=== PATIENT | male | born 1965 | race Caucasian/White ===

== ENCOUNTER 2017-02-13 09:40 | Emergency (ER) | payer BC ==
--- NOTE | 2017-02-13 09:51 | DR.CP ---
HPI - Time Seen Time seen: 09:40 - Complaint Chief Complaint Doctor Comments: Patient presents with compllaint of chest pain today onset on the right upper chest radiating to left and neck with radiation to upper extremties associated with diaphoresis. He states that his symptoms started six weeks ago and has had cardiac workup by Dr Dinero his primary care physician to include a stress test.. He reports that is being scheduled for cardiac cath next week. He has a six year history of pipe smoking; malignant skin cancer of the left lower extremity greater than 15 years ago and prostate cancer presently being treated. PMH - PMH Past Surgical History: Yes Surgical History: Other (malignant skin cancer left lower extremity) - Social History Type of Tobacco Use: Pipe How many years tobacco product used: 6 ROS - Review of Systems Constitutional: No Symptoms Reported Eyes: No Symptoms Reported ENTM: No Symptoms Reported Respiratoy: No Symptoms Reported Cardiovascular: No Symptoms Reported Gastrointestinal/Abdominal: No Symptoms Reported Genitourinary: No Symptoms Reported Neurological: No Symptoms Reported Musculoskeletal: No Symptoms Reported Integumentary: No Symptoms Reported Hematologic/Lymphatic: No Symptoms Reported Endocrine: No Symptoms Reported Psychiatric: No Symptoms Reported All Other Systems: Reviewed and Negative PE - Vitals Vitals: Temperature 98.7 F Pulse Rate 70 Respiratory Rate 18 Blood Pressure 126/81 O2 Sat by Pulse Oximetry 99 - General Limitations: No Limitations General Appearance: Alert, In No Apparent Distress - Head Head Exam: Normal Inspection, Atraumatic - Eyes Eye exam: Normal Appearance, PERRL, EOMI - ENT ENT Exam: Normal Exam - Chest Chest Inspection: Normal Inspection, Symmetric Chest Wall Rise - Respiratory Respiratory Exam: Normal Lung Sounds Bilat Respiratory Exam: Bilateral Clear to Auscultation - Cardiovascular Cardiovascular Exam: Regular Rate, Normal Rhythm Pulse: Normal, Radial Edema: Normal - Abdominal Exam Abdominal Exam: Normal Inspection Abdominal Tenderness: negative: RUQ, RLQ, LUQ, LLQ, Epigastrium, Suprapubic, Diffuse, Mild, Moderate, Severe, Other - Extremities Extremities Exam: Normal Inspection, Full ROM - Neurologic Neurological Exam: Alert, Oriented X3, CN II-XII Intact - Psychiatric Psychiatric Exam: Normal Affect, Normal Mood - Skin Skin Exam: Warm, Dry Course - Reevaluation 1st: Improved - Consultation Called: 10:30 (Nurse talked to Dr Dejesus accepted for stat cath) ROR - Labs Reviewed Result Diagrams: 02/13/17 09:48 02/13/17 09:48 Laboratory: WBC 5.6 X10^3/uL (3.6-10.0) 02/13/17 09:48 RBC 4.44 X10^6/uL (4.7-6.0) L 02/13/17 09:48 Hgb 14.6 g/dL (13.5-18.0) 02/13/17 09:48 Hct 41.0 % (42.0-54.0) L 02/13/17 09:48 MCV 92.2 fL (80.0-100.0) 02/13/17 09:48 MCH 32.8 pg (27.0-34.0) 02/13/17 09:48 MCHC 35.6 g/dL (33.0-35.0) H 02/13/17 09:48 RDW 13.0 % (11.6-16.5) 02/13/17 09:48 Plt Count 192 X10^3/uL (150.0-450.0) 02/13/17 09:48 MPV 8.8 fL (7.4-11.0) 02/13/17 09:48 Neut % 52.6 % (42.0-75.0) 02/13/17 09:48 Lymph % 35.1 % (21.0-51.0) 02/13/17 09:48 [place] % 7.3 % (0.0-13.0) 02/13/17 09:48 Eos % 4.4 % (0.9-2.9) H 02/13/17 09:48 Baso % 0.6 % (0.2-1.0) 02/13/17 09:48 Neut # 3.0 x10^3/uL (2.2-4.8) 02/13/17 09:48 Lymph # 2.0 X10^3/uL (1.3-2.9) 02/13/17 09:48 [place] # 0.4 x10^3/uL (0.3-0.8) 02/13/17 09:48 Eos # 0.2 x10^3/uL (0.0-0.2) 02/13/17 09:48 Baso # 0.0 X10^3/uL (0.0-0.1) 02/13/17 09:48 Absolute Nucleated RBC 0.1 /100WBC 02/13/17 09:48 INR Target Range - 02/13/17 09:48 INR 0.91 (0.8-1.3) 02/13/17 09:48 Sodium 139 mmol/L (136-145) 02/13/17 09:48 Corrected Sodium TNP 02/13/17 09:48 Potassium 4.4 mmol/L (3.5-5.1) 02/13/17 09:48 Chloride 103 mmol/L (98-107) 02/13/17 09:48 Carbon Dioxide 25.3 mmol/L (21-32) 02/13/17 09:48 BUN 10 mg/dL (7-18) 02/13/17 09:48 Creatinine 1.01 mg/dL (0.70-1.30) 02/13/17 09:48 Est GFR (MDRD) Af Amer > 60 (>60) 02/13/17 09:48 Est GFR (MDRD) Non-Af > 60 (>60) 02/13/17 09:48 Glucose 104 mg/dL (65-99) H 02/13/17 09:48 Calcium 8.8 mg/dL (8.5-10.1) 02/13/17 09:48 Corrected Calcium TNP 02/13/17 09:48 Phosphorus 3.7 mg/dL (2.6-4.7) 02/13/17 09:48 Magnesium 2.0 mg/dL (1.7-2.9) 02/13/17 09:48 Total Bilirubin 0.40 mg/dL (0.2-1.0) 02/13/17 09:48 AST 18 Units/L (15-37) 02/13/17 09:48 ALT 30 Units/L (12-78) 02/13/17 09:48 Alkaline Phosphatase 79 Units/L (46-116) 02/13/17 09:48 Creatine Kinase 82 Units/L (39-308) 02/13/17 09:48 CK-MB (CK-2) < 1.0 ng/mL (0-4.0) 02/13/17 09:48 CK/CKMB % Calc 1.2 % (<4) 02/13/17 09:48 Troponin I < 0.02 ng/mL (0-1.5) 02/13/17 09:48 Total Protein 7.5 g/dL (6.4-8.2) 02/13/17 09:48 Albumin 4.1 g/dL (3.4-5.0) 02/13/17 09:48 Globulin 3.4 g/dL (2.5-4.5) 02/13/17 09:48 Albumin/Globulin Ratio 1.2 Ratio (1.1-2.1) 02/13/17 09:48 - XRAY XRAY Interpreted by: Radiologist (No acute pulmonary process. Question of cortical irregularity of multiple left lateral ribs. This may represent artifact, but rib fracture not entirely excluded. Recommend clinical correlation and consider dedicated left rib series.) - Diagnosis Discharge Problem: Chest pain with high risk for cardiac etiology - Discharge Plan Condition: Stable - Follow ups/Referrals Follow ups/Referrals: Norman Dinero [Primary Care Provider] - 3 days - Instructions
[2017-02-13] MEDS ORDERED: NS 1000 ML 1,000 ML IV SCH (10:00)
[2017-02-13 10:08] LABS: BASOPHILS % (AUTO) 0.6 % (0.2-1.0); EOSINOPHILS # (AUTO) 0.2 x10^3/uL (0.0-0.2); MEAN PLATELET VOLUME 8.8 fL (7.4-11.0); MONOCYTES # (AUTO) 0.4 x10^3/uL (0.3-0.8)
[2017-02-13] MEDS ORDERED: NS 1000 ML 1,000 ML ONE (10:09)
[2017-02-13 10:11] VITALS: BMI 26.0
[2017-02-13 10:21] LABS: BLOOD UREA NITROGEN 10 mg/dL (7-18); CALCIUM 8.8 mg/dL (8.5-10.1); CARBON DIOXIDE 25.3 mmol/L (21-32); CHLORIDE 103 mmol/L (98-107); CREATININE 1.01 mg/dL (0.70-1.30); GLUCOSE 104 mg/dL (65-99); SODIUM 139 mmol/L (136-145); TROPONIN I < 0.02 ng/mL (0-1.5); eGFR BLACK RACES > 60 (>60); eGFR NON BLACK RACES > 60 (>60)
[2017-02-13 10:25] LABS: ALANINE AMINOTRANSFERASE 30 Units/L (12-78); ALBUMIN 4.1 g/dL (3.4-5.0); ALKALINE PHOSPHATASE 79 Units/L (46-116); ASPARTATE AMINO TRANSFERASE 18 Units/L (15-37); CKMB % 1.2 % (<4); CREATINE KINASE 82 Units/L (39-308); CREATINE KINASE MB < 1.0 ng/mL (0-4.0); PHOSPHORUS 3.7 mg/dL (2.6-4.7); TOTAL PROTEIN 7.5 g/dL (6.4-8.2)
[2017-02-13 10:29] LABS: EOSINOPHILS % (AUTO) 4.4 % (0.9-2.9); HEMOGLOBIN 14.6 g/dL (13.5-18.0); LYMPHOCYTES % (AUTO) 35.1 % (21.0-51.0); MEAN CORPUSCULAR HEMOGLOBIN 32.8 pg (27.0-34.0); MEAN CORPUSCULAR HGB CONC 35.6 g/dL (33.0-35.0); MEAN CORPUSCULAR VOLUME 92.2 fL (80.0-100.0); MONOCYTES % (AUTO) 7.3 % (0.0-13.0); NEUTROPHILS % (AUTO) 52.6 % (42.0-75.0); PLATELET COUNT 192 X10^3/uL (150.0-450.0); RED BLOOD COUNT 4.44 X10^6/uL (4.7-6.0); WHITE BLOOD COUNT 5.6 X10^3/uL (3.6-10.0)
--- NOTE | 2017-02-13 10:29 | RAD ---
HISTORY: Chest pain. Study: Portable chest. Comparison: None. Findings: Study slightly limited secondary to costophrenic angles off the field of view. The trachea is midline. The cardiac silhouette is unremarkable. The lungs are clear without focal infiltrate or effusion. Question of cortical irregularity of multiple left lateral ribs. Remaining osseous structures appear intact. IMPRESSION: 1. No acute pulmonary process. 2. Question of cortical irregularity of multiple left lateral ribs. This may represent artifact, but rib fracture not entirely excluded. Recommend clinical correlation and consider dedicated left rib series. Reported By:
[2017-02-13] MEDS ORDERED: ASPIRIN 81 MG CHEWTAB ONE (11:15)
[2017-02-13] MEDS ORDERED: ASPIRIN PO STA (11:15)
[2017-02-13 11:38] VITALS: BP 130/77
== END 2017-02-13 11:35 | disposition short-term general hospital (02) ==
LOC: ER 09:53
DX: R07.89 Other chest pain (principal)
CPT/HCPCS: 36415; 71010; 80053; 82550; 82553; 83735; 84100; 84484; 85025; 85610; 93005; 93010; 96365; 99284; 99285; A4222

== ENCOUNTER → 2017-06-01 | Outpatient (CLI) | payer BC ==
--- NOTE | 2017-06-03 18:27 | MRI ---
HISTORY: Cervicalgia Study: MRI cervical spine without contrast Comparison: None Technique: Multiplanar multisequence MRI of the cervical spine was obtained utilizing standard [facility] protocol. Findings: Alignment of the cervical spine is maintained. No abnormal signal characteristics of the bone marrow can be identified. No evidence for fracture or significant bone or edema can be seen. The surround ing soft tissues are unremarkable. The cervical spinal cord is normal in size and configuration . Th ere is abnormal signal in the spinal cord at the C5-6 level which could be related to edema or chroni c myelomalacia. C2 -- C3: No evidence for compressive disc disease. The neural foramina are patent C3 -- C4: Mild broad-based disc bulging effaces the thecal sac but does not contribute to significant canal stenosis or cord compression. The neural foramina are patent. C4 -- C5: Broad-based and right were disc protrusion effaces the thecal sac and contributes to modera te canal stenosis and significant foraminal narrowing on the right. The left neural foramen is patent . C5-6: Broad-based disc osteophyte formation effaces the thecal sac, contributes to significant cord c ompression and relatively severe canal stenosis. As noted above there is some increased T2 signal in the spinal cord at this area which could represent edema or chronic mild malacia. Significant foramin al narrowing is present on the right. More moderate foraminal narrowing is present on the left. 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 The neural foramina are patent. C7 -- T1: Mild disc bulging effaces the thecal sac and contributes to mild foraminal narrowing bilate rally. No significant canal stenosis or cord compression is identified. IMPRESSION: As above Reported By:
== END | disposition home or self-care (01) | DRG 552 ==
LOC: RAD 10:28
PROVIDERS: ATTEND Internal Medicine
DX: M54.2 Cervicalgia (principal); M50.221 Other cervical disc displacement at C4-C5 level; M25.78 Osteophyte, vertebrae; M48.02 Spinal stenosis, cervical region; Q76.49 Other congenital malformations of spine, not associated with scoliosis
CPT/HCPCS: 72141

== ENCOUNTER 2021-12-18 11:22 | Inpatient (IN) ==
[2021-12-18] MEDS ORDERED: ZOFRAN INJ 4 MG VIAL IVP PRN (12:47)
[2021-12-18] MEDS ORDERED: NS 1,000 ML IV 1,000 ML ONE (12:50)
[2021-12-18] MEDS ORDERED: NS 100 ML IV 0 ML ONE (12:50)
[2021-12-18] MEDS ORDERED: PROTONIX INJ 40 MG VIAL ONE (12:50)
[2021-12-18] MEDS ORDERED: PEPCID 20 MG VIAL ONE (12:51)
[2021-12-18] MEDS ORDERED: NS 50 ML IV 50 ML IV ONE (12:52)
[2021-12-18 13:18] LABS: BASOPHILS % (AUTO) 0.4 % (0.2-1.0); EOSINOPHILS # (AUTO) 0.1 x10^3/uL (0.0-0.2); EOSINOPHILS % (AUTO) 1.1 % (0.9-2.9); HEMATOCRIT 25.8 % (42.0-54.0); HEMOGLOBIN 9.2 g/dL (13.5-18.0); LYMPHOCYTES # (AUTO) 0.9 X10^3/uL (1.3-2.9); LYMPHOCYTES % (AUTO) 9.5 % (21.0-51.0); MEAN CORPUSCULAR HEMOGLOBIN 30.5 pg (27.0-34.0); MEAN CORPUSCULAR HGB CONC 35.6 g/dL (33.0-35.0); MEAN CORPUSCULAR VOLUME 85.7 fL (80.0-100.0); MEAN PLATELET VOLUME 7.2 fL (7.4-11.0); MONOCYTES # (AUTO) 0.8 x10^3/uL (0.3-0.8); MONOCYTES % (AUTO) 9.1 % (0.0-13.0); NEUTROPHILS # (AUTO) 7.4 x10^3/uL (2.2-4.8); NEUTROPHILS % (AUTO) 79.9 % (42.0-75.0); RED BLOOD COUNT 3.01 X10^6/uL (4.7-6.0); RED CELL DISTRIBUTION WIDTH 15.7 % (11.6-16.5); WHITE BLOOD COUNT 9.2 X10^3/uL (3.6-10.0)
[2021-12-18] MEDS: PEPCID 20 MG VIAL 20 MG in NS 50 ML IV 50 ML IV SCH ×2 (13:21→20:06)
[2021-12-18] MEDS: PROTONIX INJ 40 MG VIAL IVP SCH ×2 (13:22→20:06)
[2021-12-18] MEDS: NS 1,000 ML IV 1,000 ML IV SCH (13:22)
[2021-12-18 13:32] LABS: ALANINE AMINOTRANSFERASE 32 Units/L (12-78); ALBUMIN 2.3 g/dL (3.4-5.0); ALKALINE PHOSPHATASE 466 Units/L (46-116); ASPARTATE AMINO TRANSFERASE 40 Units/L (15-37); BLOOD UREA NITROGEN 16 mg/dL (7-18); CALCIUM 8.9 mg/dL (8.5-10.1); CARBON DIOXIDE 30.6 mmol/L (21-32); CHLORIDE 84 mmol/L (98-107); COR CA(FOR HYPOALB) 10.3 mg/dL (8.5-10.1); CREATININE 1.19 mg/dL (0.70-1.30); TOTAL PROTEIN 7.1 g/dL (6.4-8.2); eGFR NON BLACK RACES > 60 (>60)
[2021-12-18 13:39] LABS: SODIUM 122 mmol/L (136-145)
[2021-12-18 13:41] LABS: AMYLASE 33 Units/L (25-115); LIPASE 72 Units/L (73-393)
[2021-12-18] MEDS: ULTRAM PO PRN (20:06)
[2021-12-19] MEDS: ULTRAM PO PRN (01:00)
[2021-12-19] MEDS: NS 1,000 ML IV 1,000 ML IV SCH ×3 (03:21→21:20)
[2021-12-19 06:31] LABS: BASOPHILS # (AUTO) 0.1 X10^3/uL (0.0-0.1); BASOPHILS % (AUTO) 0.8 % (0.2-1.0); EOSINOPHILS # (AUTO) 0.2 x10^3/uL (0.0-0.2); EOSINOPHILS % (AUTO) 1.7 % (0.9-2.9); HEMATOCRIT 26.3 % (42.0-54.0); LYMPHOCYTES # (AUTO) 1.4 X10^3/uL (1.3-2.9); LYMPHOCYTES % (AUTO) 14.4 % (21.0-51.0); MEAN CORPUSCULAR HEMOGLOBIN 29.8 pg (27.0-34.0); MEAN CORPUSCULAR HGB CONC 34.4 g/dL (33.0-35.0); MEAN CORPUSCULAR VOLUME 86.6 fL (80.0-100.0); MEAN PLATELET VOLUME 7.4 fL (7.4-11.0); MONOCYTES # (AUTO) 0.8 x10^3/uL (0.3-0.8); MONOCYTES % (AUTO) 8.3 % (0.0-13.0); NEUTROPHILS # (AUTO) 7.3 x10^3/uL (2.2-4.8); NEUTROPHILS % (AUTO) 74.8 % (42.0-75.0); RED BLOOD COUNT 3.03 X10^6/uL (4.7-6.0); RED CELL DISTRIBUTION WIDTH 15.6 % (11.6-16.5); WHITE BLOOD COUNT 9.8 X10^3/uL (3.6-10.0)
[2021-12-19 06:40] LABS: ALANINE AMINOTRANSFERASE 29 Units/L (12-78); ALBUMIN 2.2 g/dL (3.4-5.0); ALKALINE PHOSPHATASE 436 Units/L (46-116); AMYLASE 38 Units/L (25-115); ASPARTATE AMINO TRANSFERASE 39 Units/L (15-37); BLOOD UREA NITROGEN 14 mg/dL (7-18); CARBON DIOXIDE 29.7 mmol/L (21-32); CHLORIDE 89 mmol/L (98-107); COR CA(FOR HYPOALB) 10.4 mg/dL (8.5-10.1); CREATININE 1.28 mg/dL (0.70-1.30); LIPASE 77 Units/L (73-393); TOTAL PROTEIN 7.1 g/dL (6.4-8.2); eGFR NON BLACK RACES > 60 (>60)
[2021-12-19 06:45] LABS: SODIUM 124 mmol/L (136-145)
[2021-12-19] MEDS: PROTONIX INJ 40 MG VIAL IVP SCH ×2 (08:24→20:50)
[2021-12-19] MEDS: PEPCID 20 MG VIAL 20 MG in NS 50 ML IV 50 ML IV SCH ×2 (08:24→20:50)
--- NOTE | 2021-12-19 10:53 | DR.UPDATE ---
H&P Update History and Physical Update: History and Physical reviewed and patient examined. Changes noted: Yes with the following: IS A 56 YEAR OLD PATIENT OF OURS. HE HAS BEEN FOLLOWED IN THE OFFICE FOR COMPALINTS OF ABDOMINAL PAIN, INTRACTABLE NAUSEA, AND WEAKNESS. PAIN HAS PERSISENTLY GOTTEN WORSE OVER THE PAST WEEK. HE HAS BEEN TAKING TRAMALOD AND GI COCKTAIL WITHOUT IMPROVEMENT IN PAIN. HE ADMITS TO A 22 POUND WEIGHT LOSS IN THE PAST WEEK DUE TO FLUID BEING TAKEN OFF WITH ALDACTONE AND LASIX. PATIENT HAS A C URRENT HISTORY OF PROSTATE CANCER WITH METS TO THE LIVER. PAIN IS DESCRIBED RLQ AND LLQ DULL TENDERNESS, CONSTANT, AND IT IS RATED A 6/10. HE REPORTS WORSENING PAIN AFTER EATING. HE STATES, I SUFFER FOR SEVERAL HOURS AFTER I EAT. HE HAD AN ABDOMINAL ULTRASOUND ON 12/11/21. IT REVEALED: Hepatomegaly with multiple new echogenic lesions of varying size throughout the liver suspicious for metastatic disease. There is no ascites at this time. The pancreas spleen aorta and IVC are normal. There is moderate hydronephrosis bilaterally in both kidneys. DECISION WAS MADE TO ADMIT PATIENT TO THE HOSPITAL FOR FURTHER EVALUATION AND TREATMENT OF INTRACTABLE ABDOMINAL PAIN AND NAUSEA AND WEAKNESS. ON ARRIVAL TO THE HOSPITAL, VITALS WERE 97.8-109-20-99%-115/75. LABS WERE OBTAINED. WBC 9.2, RBC 3.01, HGB 9.2, HCT 25.8, SODIUM 122, POTASSIUM 4.1, CHLORIDE 84, BUN 16, CREATININE 1.19, GLUCOSE 96, CORRECTED CALCIUM 10.3, AST 40, ALT 32, ALK PHOS 466, ALBUMIN 2.3, GLOBULIN 4.8, LIPASE 72. COVID-19 NEG ATIVE. WE STARTED HIM ON NORMAL SALINE AT 75 ML/HR, PROTONIX 40MG IV BID, PEPCID 20MG IV Q12H, ZOFRAN 4MG IV Q4H PRN, AND ULTRAM 50MG PO Q4H PRN PAIN. WE WILL CONSULT WITH , LAYOUT ARTIST FOR FURTHER EVALUATION. OTHERWISE, WE PLAN TO FOLLOW UP WITH AM LABS AND CONTINUE TO MONITOR. TIME SPENT ON CLINICAL ASSESSMENT, REVIEWING LABS AND IMAGING, DECISION MAKING, AND DOCUMENTATION GREATER THAN 75 MINUTES. Prescription drug monitoring program results: PDMP reviewed and no concerns identified H&P Reviewed: Yes Patient was examined?: Yes
[2021-12-19] MEDS ORDERED: D5 LR 1,000 ML 1,000 ML IV ONE (12:50)
[2021-12-19] MEDS ORDERED: DIPRIVAN VIAL 20 ML ONE (13:48)
[2021-12-19] MEDS ORDERED: KETAMINE HCL ONE (13:50)
[2021-12-19 18:25] VITALS: BMI 21.5
[2021-12-19] MEDS: MEGACE PO SCH (20:50)
[2021-12-19] MEDS: MIRALAX POWDER (1 DOSE 17 G) PO SCH (20:50)
[2021-12-19] MEDS: COLACE CAP 100 MG PO SCH (20:50)
[2021-12-20] MEDS: ULTRAM PO PRN (01:11)
[2021-12-20] MEDS ORDERED: NS 100 ML IV 100 ML ONE (02:15)
[2021-12-20 06:19] LABS: BASOPHILS # (AUTO) 0.1 X10^3/uL (0.0-0.1); BASOPHILS % (AUTO) 0.6 % (0.2-1.0); EOSINOPHILS # (AUTO) 0.1 x10^3/uL (0.0-0.2); EOSINOPHILS % (AUTO) 1.5 % (0.9-2.9); HEMATOCRIT 24.3 % (42.0-54.0); HEMOGLOBIN 8.5 g/dL (13.5-18.0); LYMPHOCYTES # (AUTO) 1.2 X10^3/uL (1.3-2.9); LYMPHOCYTES % (AUTO) 12.2 % (21.0-51.0); MEAN CORPUSCULAR HGB CONC 34.9 g/dL (33.0-35.0); MEAN CORPUSCULAR VOLUME 85.9 fL (80.0-100.0); MEAN PLATELET VOLUME 7.3 fL (7.4-11.0); MONOCYTES # (AUTO) 0.9 x10^3/uL (0.3-0.8); MONOCYTES % (AUTO) 9.3 % (0.0-13.0); NEUTROPHILS # (AUTO) 7.5 x10^3/uL (2.2-4.8); NEUTROPHILS % (AUTO) 76.4 % (42.0-75.0); RED BLOOD COUNT 2.83 X10^6/uL (4.7-6.0); RED CELL DISTRIBUTION WIDTH 15.4 % (11.6-16.5); WHITE BLOOD COUNT 9.8 X10^3/uL (3.6-10.0)
[2021-12-20] MEDS: NS 1,000 ML IV 1,000 ML IV SCH ×2 (06:20→21:00)
[2021-12-20 06:24] LABS: ALANINE AMINOTRANSFERASE 40 Units/L (12-78); ALBUMIN 2.1 g/dL (3.4-5.0); ALKALINE PHOSPHATASE 581 Units/L (46-116); ASPARTATE AMINO TRANSFERASE 63 Units/L (15-37); BLOOD UREA NITROGEN 13 mg/dL (7-18); CALCIUM 8.3 mg/dL (8.5-10.1); CARBON DIOXIDE 26.8 mmol/L (21-32); CHLORIDE 93 mmol/L (98-107); COR CA(FOR HYPOALB) 9.8 mg/dL (8.5-10.1); CREATININE 1.17 mg/dL (0.70-1.30); SODIUM 126 mmol/L (136-145); TOTAL PROTEIN 6.5 g/dL (6.4-8.2); eGFR NON BLACK RACES > 60 (>60)
--- NOTE | 2021-12-20 08:25 | CT ---
HISTORYRight upper quadrant abdominal pain, weaknessSTUDYCT abdomen pelvis with contrastTechnique: Axial post-contrast images with coronal and sagittal reformats. Dose reduction procedures were used with mA/kv adjusted for body size.[id number]/13/2022 abdominal ultrasound, CT abdomen pelvis 05/17/2020FINDINGSThe lung bases are clear of acute infiltrates. Multiple bilateral sub 5 mm pulmonary nodules are identified. Pulmonary metastatic disease is possible and correlation with chest CT with contrast is recommended for further evaluation. The liver is enlarged and diffusely severely involved with metastatic disease. Largest lesion is in the right lobe and measures 6.3 x 5.2 cm. No opaque stones are present within the gallbladder. The spleen, adrenal glands, and pancreas are within normal limits. The left kidney is unobstructed and without masses. Nonobstructing left renal calculi are present. No left ureteral calculi are identified. No right renal calculi are identified. However there is marked right-sided hydroureteronephrosis. The point of obstruction is in the area of the pelvic brim and due to a large mass of enlarged lymph nodes. No ureteral calculi are identified. The abdominal aorta is normal. There is extensive para-aortic lymphadenopathy with the largest cluster of nodes in the upper abdomen measuring approximately 7 x 4.6 cm. There is extensive right para iliac lymphadenopathy and also enlarged left para iliac lymphadenopathy. Findings could be consistent with metastatic disease or lymphoproliferative disease such as lymphoma or leukemia. The appendix is not identified with absolute certainty. There are no secondary signs of appendicitis present. There are no findings suggestive of enteritis, colitis, or diverticulitis. There are no findings suggestive of small or large bowel obstruction. No pelvic fluid is identified. There is diffuse thickening of the bladder wall which could be inflammatory, post radiation, or neoplastic in origin. Prostatic seed implants are present. No significant inguinal lymphadenopathy is identified. No lytic or blastic skeletal lesions of significance are identified.IMPRESSIONHepatomegaly with diffuse severe involvement of the liver with metastatic diseaseExtensive para-aortic and para iliac lymphadenopathy as described aboveMarked right-sided hydroureteronephrosis secondary to mid to distal ureteral obstruction by abnormal periaortic act lymphadenopathyDiffuse thickening of the bladder wall which could be neoplastic, inflammatory or post irradiation in etiology. Clinical and historical correlation is recommended.Electronically signed by: TERE CANTU (Dec 20, 2021 08:25:07)
[2021-12-20] MEDS: COLACE CAP 100 MG PO SCH ×2 (09:28→21:01)
[2021-12-20] MEDS: ALDACTONE TAB 25 MG PO SCH (09:28)
[2021-12-20] MEDS: PEPCID 20 MG VIAL 20 MG in NS 50 ML IV 50 ML IV SCH ×2 (09:29→21:06)
[2021-12-20] MEDS: PROTONIX INJ 40 MG VIAL IVP SCH ×2 (09:29→21:00)
[2021-12-20] MEDS: MEGACE PO SCH ×2 (09:29→21:06)
[2021-12-20] MEDS: ROXICODONE TAB 5 MG PO PRN ×2 (09:30→21:07)
[2021-12-20] MEDS: CARAFATE PO SCH ×3 (14:46→21:05)
[2021-12-20 18:28] LABS: BLOOD UREA NITROGEN 12 mg/dL (7-18); CALCIUM 8.6 mg/dL (8.5-10.1); CARBON DIOXIDE 27.1 mmol/L (21-32); CHLORIDE 94 mmol/L (98-107); CREATININE 1.19 mg/dL (0.70-1.30); SODIUM 127 mmol/L (136-145); eGFR NON BLACK RACES > 60 (>60)
--- NOTE | 2021-12-20 18:38 | PCM.PROG ---
Progress Note Progress Note for Day of Date of Exam: 12/20/21 Subjective Subjective: PT IS A 56 YEAR OLD PATIENT PAST MEDICAL HISTORY OF METASTATIC PROSTATE CANCER ADMITTED FOR ABDOMINAL PAIN, INTRACTABLE NAUSEA, WEAKNESS, AND HYPONATREMIA. GI WAS CONSULTED-DR SULLIVAN AND EGD WAS PERFORMED YESTERDAY THAT REVEALED: Distal esophagitis. Mild to moderate gastritis. Duodenum diverticulum. Ectopic mucosa in the upper esophagus consistent with significant acid reflux. LABS WERE OBTAINED THAT REVEALED: WBC 9.8, HGB 8.5, PLT 343, NA 126, K 4.1, CREATININE 1.17, GLUCOSE 102, AST 63, ALT 40, ALKP 581. HE IS CURRENTLY RECEIVING IVF NORMAL SALINE AT 75 ML/HR, PROTONIX 40MG IV BID, PEPCID 20MG IV Q12H, ZOFRAN 4MG IV Q4H PRN, AND ULTRAM 50MG PO Q4H PRN PAIN. WILL ADD CARAFATE TID, AND ENSURE TO HELP WITH NUTRITION. REPEAT BMP IN THE AFTERNOON TO ASSESS HYPONATREMIA. ADD RESTORIL AT NIGHT TO HELP WITH SLEEP. CTAP CURRENTLY PENDING. OTHERWISE, WE PLAN TO FOLLOW UP WITH AM LABS AND CONTINUE TO MONITOR. Past Medical Family Social History Past Med/Fam/Surg Hx: No changes since H&P Allergies: Allergies Sulfa (Sulfonamide Antibiotics) [SULFA] Allergy (Verified 12/18/21 12:46) Review of Systems ROS: No change since H&P Vital Signs and I&O's Vital Signs: Temperature 99.4 F Pulse Rate [Right Brachial] 120 Pulse Rate 103 Respiratory Rate 18 Blood Pressure [Right Arm] 119/73 Blood Pressure 127/79 O2 Sat by Pulse Oximetry 98 Intake and Output: Intake & Output 12/17/21 12/18/21 12/19/21 12/20/21 23:59 23:59 23:59 23:59 Intake Total 1440 / 1440 3462 / 3462 900 / 900 Output Total 150 / 150 Balance 1440 / 1440 3312 / 3312 900 / 900 Physical Exam Oriented: Normal Eyes: Normal Ear: Normal Nose: Normal Throat: Normal Respiratory: Normal Cardiovascular: Normal : Normal Auscultation: Bowel Sounds: Normal Palpation: Other (MILD-MODERATE ASCITES) Tenderness: Epigastric Skin: Normal Musculoskeletal: Normal Psychiatric: Normal Speech Pattern: Clear and Appropriate Laboratory and Diagnostics Result Diagrams: 12/20/21 05:52 12/20/21 18:09 Labs: Laboratory WBC 9.8 X10^3/uL (3.6-10.0) 12/20/21 05:52 RBC 2.83 X10^6/uL (4.7-6.0) L 12/20/21 05:52 Hgb 8.5 g/dL (13.5-18.0) L 12/20/21 05:52 Hct 24.3 % (42.0-54.0) L 12/20/21 05:52 MCV 85.9 fL (80.0-100.0) 12/20/21 05:52 MCH 30.0 pg (27.0-34.0) 12/20/21 05:52 MCHC 34.9 g/dL (33.0-35.0) 12/20/21 05:52 RDW 15.4 % (11.6-16.5) 12/20/21 05:52 Plt Count 343 X10^3/uL (150.0-450.0) 12/20/21 05:52 MPV 7.3 fL (7.4-11.0) L 12/20/21 05:52 Neut % (Auto) 76.4 % (42.0-75.0) H 12/20/21 05:52 Lymph % (Auto) 12.2 % (21.0-51.0) L 12/20/21 05:52 [place] % (Auto) 9.3 % (0.0-13.0) 12/20/21 05:52 Eos % (Auto) 1.5 % (0.9-2.9) 12/20/21 05:52 Baso % (Auto) 0.6 % (0.2-1.0) 12/20/21 05:52 Neut # (Auto) 7.5 x10^3/uL (2.2-4.8) H 12/20/21 05:52 Lymph # (Auto) 1.2 X10^3/uL (1.3-2.9) L 12/20/21 05:52 [place] # (Auto) 0.9 x10^3/uL (0.3-0.8) H 12/20/21 05:52 Eos # (Auto) 0.1 x10^3/uL (0.0-0.2) 12/20/21 05:52 Baso # (Auto) 0.1 X10^3/uL (0.0-0.1) 12/20/21 05:52 Absolute Nucleated RBC 0.1 /100WBC 12/20/21 05:52 Sodium 127 mmol/L (136-145) L 12/20/21 18:09 Corrected Sodium TNP 12/20/21 18:09 Potassium 3.7 mmol/L (3.5-5.1) 12/20/21 18:09 Chloride 94 mmol/L (98-107) L 12/20/21 18:09 Carbon Dioxide 27.1 mmol/L (21-32) 12/20/21 18:09 BUN 12 mg/dL (7-18) 12/20/21 18:09 Creatinine 1.19 mg/dL (0.70-1.30) 12/20/21 18:09 Est GFR (MDRD) Af Amer > 60 (>60) 12/20/21 18:09 Est GFR (MDRD) Non-Af > 60 (>60) 12/20/21 18:09 Glucose 110 mg/dL (65-99) H 12/20/21 18:09 Calcium 8.6 mg/dL (8.5-10.1) 12/20/21 18:09 Corrected Calcium 9.8 mg/dL (8.5-10.1) 12/20/21 05:52 Total Bilirubin 0.70 mg/dL (0.2-1.0) 12/20/21 05:52 AST 63 Units/L (15-37) H 12/20/21 05:52 ALT 40 Units/L (12-78) 12/20/21 05:52 Alkaline Phosphatase 581 Units/L (46-116) H 12/20/21 05:52 Total Protein 6.5 g/dL (6.4-8.2) 12/20/21 05:52 Albumin 2.1 g/dL (3.4-5.0) L 12/20/21 05:52 Globulin 4.4 g/dL (2.5-4.5) 12/20/21 05:52 Albumin/Globulin Ratio 0.5 Ratio (1.1-2.1) L 12/20/21 05:52 Amylase 38 Units/L (25-115) 12/19/21 05:57 Lipase 77 Units/L (73-393) 12/19/21 05:57 SARS-CoV-2 (PCR) Negative (NEGATIVE) 12/18/21 16:28 Tissue Pathology To follow 12/19/21 14:04 Plan (1) Prostate cancer, primary, with metastasis from prostate to other site: Status: Acute (2) Ascites: Status: Acute (3) Hyponatremia: Status: Acute (4) Abdominal pain: Status: Acute
[2021-12-20] MEDS ORDERED: RESTORIL CAP 15 MG PO SCH (21:00)
[2021-12-20] MEDS: MIRALAX POWDER (1 DOSE 17 G) PO SCH (21:05)
[2021-12-21] MEDS: ULTRAM PO PRN ×2 (02:58→11:00)
[2021-12-21] MEDS: ROXICODONE TAB 5 MG PO PRN (04:00)
[2021-12-21] MEDS: CARAFATE PO SCH (06:21)
[2021-12-21 07:04] LABS: BASOPHILS # (AUTO) 0.1 X10^3/uL (0.0-0.1); BASOPHILS % (AUTO) 0.5 % (0.2-1.0); EOSINOPHILS # (AUTO) 0.2 x10^3/uL (0.0-0.2); EOSINOPHILS % (AUTO) 2.2 % (0.9-2.9); HEMATOCRIT 22.2 % (42.0-54.0); HEMOGLOBIN 7.8 g/dL (13.5-18.0); LYMPHOCYTES # (AUTO) 1.1 X10^3/uL (1.3-2.9); LYMPHOCYTES % (AUTO) 10.7 % (21.0-51.0); MEAN CORPUSCULAR HEMOGLOBIN 30.2 pg (27.0-34.0); MEAN CORPUSCULAR VOLUME 86.1 fL (80.0-100.0); MEAN PLATELET VOLUME 7.4 fL (7.4-11.0); NEUTROPHILS % (AUTO) 76.6 % (42.0-75.0); RED BLOOD COUNT 2.58 X10^6/uL (4.7-6.0); RED CELL DISTRIBUTION WIDTH 15.6 % (11.6-16.5); WHITE BLOOD COUNT 10.5 X10^3/uL (3.6-10.0)
[2021-12-21 07:23] LABS: ALANINE AMINOTRANSFERASE 37 Units/L (12-78); ALBUMIN 1.9 g/dL (3.4-5.0); ALKALINE PHOSPHATASE 531 Units/L (46-116); ASPARTATE AMINO TRANSFERASE 53 Units/L (15-37); BLOOD UREA NITROGEN 10 mg/dL (7-18); CARBON DIOXIDE 24.5 mmol/L (21-32); CHLORIDE 95 mmol/L (98-107); COR CA(FOR HYPOALB) 9.7 mg/dL (8.5-10.1); CREATININE 1.07 mg/dL (0.70-1.30); SODIUM 126 mmol/L (136-145); TOTAL PROTEIN 5.9 g/dL (6.4-8.2); eGFR NON BLACK RACES > 60 (>60)
[2021-12-21] MEDS: ALDACTONE TAB 25 MG PO SCH (08:48)
[2021-12-21] MEDS: MEGACE PO SCH (08:49)
[2021-12-21] MEDS: COLACE CAP 100 MG PO SCH (08:49)
[2021-12-21] MEDS: PEPCID 20 MG VIAL 20 MG in NS 50 ML IV 50 ML IV SCH (08:49)
[2021-12-21] MEDS: PROTONIX INJ 40 MG VIAL IVP SCH (08:49)
[2021-12-21 11:04] VITALS: BP 118/72
--- NOTE | 2021-12-30 13:07 | PCM.PROG ---
Progress Note - Progress Note for Day of Date of Exam: 12/19/21 - Subjective Subjective: IS BEING TREATMENT OF INTRACTABLE HYPONATREMIA, ABDOMINAL PAIN, NAUSEA, AND VOMITING. HE HAS A PRESENTE HISTORY OF PROSTATE CANCER WITH METS TO THE LIVER. HE ADMITS TO A 22 POUND WEIGHT LOSS IN THE PAST WEEK DUE TO TAKING ALDACTONE AND LASIX. PAIN IS WORSE AFTER EATING. TODAY, HE IS ALERT AND ORIENTED, LYING IN BED ON MORNING ROUNDS. HE CONTINUES TO HAVE PERSISTENT ABDOMINAL PAIN AND NAUSEA. HE DENIES VOMITING THIS MORNING. ON EXAMINATION, HEART IS REGULAR IN RATE AND RHYTHM. BILATERAL LUNGS ARE CLEAR TO AUSCULTATION. ABDOMEN IS ROUND, SOFT, AND NOTED WITH DIFFUSE TENDERNESS. NORMAL BOWEL SOUNDS NOTED IN ALL QUADRANTS. NO UPPER OR LOWER EXTREMITY EDEMA NOTED. HIS VITALS THIS MORNING ARE: 98.3-100-18-97%-114/77. LABS WERE OBTAINED. ABNORMAL LAB VALUES INCLUDE THE FOLLOWING: RBC 3.03, HGB 9.0, HCT 26.3, SODIUM 124, CHLORIDE 84, AST 40, ALK PHOS 466, ALBUMIN 2.3, GLOBULIN 4.8, LIPASE 72. HAS CONSULTED WITH PATIENT. HE PLANS FOR AN EGD TODAY. WE ARE IN AGREEMENT WITH PLANS. WE WILL OBTAIN AN ABDOMEN/PELVIS CT WITH CONTRAST TOMORROW MORNING. HE IS CURRENTLY RECEIVING NORMAL SALINE AT 75 ML/HR, PROTONIX 40MG IV BID, PEPCID 20MG IV Q12H, ZOFRAN 4MG IV Q4H PRN, AND ULTRAM 50MG PO Q4H PRN PAIN. WE WILL CONTINUE WITH CURRENT PLAN OF CARE TODAY AND RESUME HIS HOME MEDICATIONS. OTHERWISE, WE PLAN TO FOLLOW UP WITH AM LABS AND CONTINUE TO MONITOR. TIME SPENT ON CLINICAL ASSESSMENT, REVIEWING LABS AND IMAGING, DECISION MAKING, AND DOCUMENTATION GREATER THAN 45 MINUTES. - Past Medical Family Social History Past Med/Fam/Surg Hx: No changes since H&P Allergies: Allergies Sulfa (Sulfonamide Antibiotics) [SULFA] Allergy (Verified 12/18/21 12:46) - Review of Systems ROS: No change since H&P - Vital Signs and I&O's Vital Signs: Temperature 98.8 F Pulse Rate [Right Brachial] 122 Pulse Rate 103 Respiratory Rate 16 Blood Pressure [Right Arm] 118/72 Blood Pressure 127/79 O2 Sat by Pulse Oximetry 95 - Physical Exam Oriented: Normal Eyes: Normal Ear: Normal Nose: Normal Throat: Normal Respiratory: Normal Cardiovascular: Normal : Normal Auscultation: Bowel Sounds: Normal Tenderness: Diffuse, Moderate Skin: Decreased [place] Musculoskeletal: Normal Psychiatric: Normal Speech Pattern: Clear, Appropriate - Laboratory and Diagnostics Result Diagrams: 12/21/21 05:40 12/21/21 05:40 Labs: Laboratory WBC 10.5 X10^3/uL (3.6-10.0) H 12/21/21 05:40 RBC 2.58 X10^6/uL (4.7-6.0) L 12/21/21 05:40 Hgb 7.8 g/dL (13.5-18.0) L 12/21/21 05:40 Hct 22.2 % (42.0-54.0) L 12/21/21 05:40 MCV 86.1 fL (80.0-100.0) 12/21/21 05:40 MCH 30.2 pg (27.0-34.0) 12/21/21 05:40 MCHC 35.0 g/dL (33.0-35.0) 12/21/21 05:40 RDW 15.6 % (11.6-16.5) 12/21/21 05:40 Plt Count 304 X10^3/uL (150.0-450.0) 12/21/21 05:40 MPV 7.4 fL (7.4-11.0) 12/21/21 05:40 Neut % (Auto) 76.6 % (42.0-75.0) H 12/21/21 05:40 Lymph % (Auto) 10.7 % (21.0-51.0) L 12/21/21 05:40 [place] % (Auto) 10.0 % (0.0-13.0) 12/21/21 05:40 Eos % (Auto) 2.2 % (0.9-2.9) 12/21/21 05:40 Baso % (Auto) 0.5 % (0.2-1.0) 12/21/21 05:40 Neut # (Auto) 8.0 x10^3/uL (2.2-4.8) H 12/21/21 05:40 Lymph # (Auto) 1.1 X10^3/uL (1.3-2.9) L 12/21/21 05:40 [place] # (Auto) 1.0 x10^3/uL (0.3-0.8) H 12/21/21 05:40 Eos # (Auto) 0.2 x10^3/uL (0.0-0.2) 12/21/21 05:40 Baso # (Auto) 0.1 X10^3/uL (0.0-0.1) 12/21/21 05:40 Absolute Nucleated RBC 0.0 /100WBC 12/21/21 05:40 Sodium 126 mmol/L (136-145) L 12/21/21 05:40 Corrected Sodium TNP 12/21/21 05:40 Potassium 3.9 mmol/L (3.5-5.1) 12/21/21 05:40 Chloride 95 mmol/L (98-107) L 12/21/21 05:40 Carbon Dioxide 24.5 mmol/L (21-32) 12/21/21 05:40 BUN 10 mg/dL (7-18) 12/21/21 05:40 Creatinine 1.07 mg/dL (0.70-1.30) 12/21/21 05:40 Est GFR (MDRD) Af Amer > 60 (>60) 12/21/21 05:40 Est GFR (MDRD) Non-Af > 60 (>60) 12/21/21 05:40 Glucose 94 mg/dL (65-99) 12/21/21 05:40 Calcium 8.0 mg/dL (8.5-10.1) L 12/21/21 05:40 Corrected Calcium 9.7 mg/dL (8.5-10.1) 12/21/21 05:40 Total Bilirubin 0.60 mg/dL (0.2-1.0) 12/21/21 05:40 AST 53 Units/L (15-37) H 12/21/21 05:40 ALT 37 Units/L (12-78) 12/21/21 05:40 Alkaline Phosphatase 531 Units/L (46-116) H 12/21/21 05:40 Total Protein 5.9 g/dL (6.4-8.2) L 12/21/21 05:40 Albumin 1.9 g/dL (3.4-5.0) L 12/21/21 05:40 Globulin 4.0 g/dL (2.5-4.5) 12/21/21 05:40 Albumin/Globulin Ratio 0.5 Ratio (1.1-2.1) L 12/21/21 05:40 Amylase 38 Units/L (25-115) 12/19/21 05:57 Lipase 77 Units/L (73-393) 12/19/21 05:57 SARS-CoV-2 (PCR) Negative (NEGATIVE) 12/18/21 16:28 Tissue Pathology To follow 12/19/21 14:04 - Plan (1) Hyponatremia Status: Acute Plan: EGD TODAY, ABDOMEN/PELVIS CT WITH CONTRAST IN AM, NORMAL SALINE AT 75 ML/HR, PROTONIX 40MG IV BID, PEPCID 20MG IV Q12H, ZOFRAN 4MG IV Q4H PRN, AND ULTRAM 50MG PO Q4H PRN PAIN (2) Abdominal pain Status: Acute Qualifiers: Abdominal location: generalized Qualified Code(s): R10.84 - Generalized abdominal pain (3) Nausea and vomiting Status: Acute Qualifiers: Vomiting type: unspecified Qualified Code(s): R11.2 - Nausea with vomiting, unspecified (4) Prostate cancer, primary, with metastasis from prostate to other site Status: Acute
== END 2021-12-21 11:37 | disposition home or self-care (01) | DRG 641 ==
LOC: MED/SURG → OBSVTOIN 11:23
PROVIDERS: ADMIT Internal Medicine; ATTEND Internal Medicine
DX: K57.10 Diverticulosis of small intestine without perforation or abscess without bleeding; R10.84 Generalized abdominal pain; K29.00 Acute gastritis without bleeding; R63.4 Abnormal weight loss; R11.2 Nausea with vomiting, unspecified; C78.7 Secondary malignant neoplasm of liver and intrahepatic bile duct; R10.13 Epigastric pain; E87.1 Hypo-osmolality and hyponatremia; R53.1 Weakness; R18.8 Other ascites; R94.31 Abnormal electrocardiogram [ECG] [EKG]; Z20.822 Contact with and (suspected) exposure to COVID-19; C61 Malignant neoplasm of prostate; K21.00 Gastro-esophageal reflux disease with esophagitis, without bleeding

== ENCOUNTER 2022-01-30 15:27 | Inpatient (IN) ==
[2022-01-30 19:35] LABS: BASOPHILS % (AUTO) 0.1 % (0.2-1.0); EOSINOPHILS # (AUTO) 0.1 x10^3/uL (0.0-0.2); EOSINOPHILS % (AUTO) 0.8 % (0.9-2.9); HEMATOCRIT 30.8 % (42.0-54.0); HEMOGLOBIN 10.2 g/dL (13.5-18.0); LYMPHOCYTES # (AUTO) 0.9 X10^3/uL (1.3-2.9); LYMPHOCYTES % (AUTO) 6.3 % (21.0-51.0); MEAN CORPUSCULAR HEMOGLOBIN 29.2 pg (27.0-34.0); MEAN CORPUSCULAR HGB CONC 33.2 g/dL (33.0-35.0); MEAN PLATELET VOLUME 7.8 fL (7.4-11.0); MONOCYTES # (AUTO) 0.8 x10^3/uL (0.3-0.8); MONOCYTES % (AUTO) 5.1 % (0.0-13.0); NEUTROPHILS % (AUTO) 87.7 % (42.0-75.0); RED BLOOD COUNT 3.51 X10^6/uL (4.7-6.0); RED CELL DISTRIBUTION WIDTH 20.3 % (11.6-16.5); WHITE BLOOD COUNT 14.8 X10^3/uL (3.6-10.0)
[2022-01-30 19:45] LABS: ANISOCYTOSIS 1+; PLATELET MORPHOLOGY COMMENT NORMAL (NORMAL)
[2022-01-30 19:51] LABS: ALANINE AMINOTRANSFERASE 34 Units/L (12-78); ALBUMIN 2.2 g/dL (3.4-5.0); ALKALINE PHOSPHATASE 490 Units/L (46-116); AMYLASE 46 Units/L (25-115); ASPARTATE AMINO TRANSFERASE 72 Units/L (15-37); BLOOD UREA NITROGEN 108 mg/dL (7-18); CALCIUM 10.7 mg/dL (8.5-10.1); CARBON DIOXIDE 23.5 mmol/L (21-32); CHLORIDE 88 mmol/L (98-107); COR CA(FOR HYPOALB) 12.1 mg/dL (8.5-10.1); LIPASE 135 Units/L (73-393); SODIUM 126 mmol/L (136-145); TOTAL PROTEIN 6.5 g/dL (6.4-8.2); eGFR NON BLACK RACES 9 (>60)
[2022-01-30 19:56] LABS: AMMONIA < 10 umol/L (11-32)
[2022-01-30] MEDS: NS 1,000 ML IV 1,000 ML IV SCH (20:24)
--- NOTE | 2022-01-30 20:47 | RAD ---
CHEST, 1 VIEWHISTORY: SOBStudy: PA and lateral views of the chest.Comparison:NoneFindings:The cardiomediastinal silhouette is normal.No focal consolidations, pleural effusions or pneumothorax. Osseous structures demonstrate no acute abnormality.IMPRESSION:1. No acute cardiopulmonary process.Electronically signed by: SHY OLEARY (Jan 30, 2022 20:45:37)
[2022-01-30 20:48] VITALS: BMI 21.5
[2022-01-30] MEDS ORDERED: NS 1,000 ML IV 1,000 ML IV ONE (21:26)
[2022-01-30] MEDS: ALBUMIN HUMAN 25%- 100 ML 100 ML IV SCH (21:45)
[2022-01-30] MEDS: ZOSYN VIAL 3.375 GRAMS 3.375 G in NS 100 ML IV 100 ML IV SCH (22:54)
[2022-01-30 23:04] LABS: BILIRUBIN,URINE NEGATIVE (NEGATIVE); BLOOD/HEMOGLOBIN,URINE 2+ (NEGATIVE); GLUCOSE, URINE NEGATIVE (NEGATIVE); KETONES,URINE NEGATIVE (NEGATIVE); LEUKOCYTE ESTERASE ,URINE 3+ (NEGATIVE); NITRITES,URINE NEGATIVE (NEGATIVE); PROTEIN,URINE 3+ (NEGATIVE); UROBILINOGEN,URINE NORMAL (NORMAL)
[2022-01-30 23:09] LABS: APPEARANCE,URINE HAZY (CLEAR); COLOR,URINE YELLOW (YELLOW)
[2022-01-30 23:10] LABS: BACTERIA,URINE 2+ /HPF (NEGATIVE); SQUAMOUS EPITHELIAL CELL,UR RARE /HPF (NEGATIVE)
[2022-01-31 04:53] LABS: BASOPHILS % (AUTO) 0.1 % (0.2-1.0); EOSINOPHILS # (AUTO) 0.1 x10^3/uL (0.0-0.2); EOSINOPHILS % (AUTO) 0.8 % (0.9-2.9); HEMATOCRIT 24.9 % (42.0-54.0); HEMOGLOBIN 8.4 g/dL (13.5-18.0); LYMPHOCYTES # (AUTO) 0.9 X10^3/uL (1.3-2.9); LYMPHOCYTES % (AUTO) 6.9 % (21.0-51.0); MEAN CORPUSCULAR HEMOGLOBIN 29.3 pg (27.0-34.0); MEAN CORPUSCULAR HGB CONC 33.5 g/dL (33.0-35.0); MEAN CORPUSCULAR VOLUME 87.2 fL (80.0-100.0); MEAN PLATELET VOLUME 7.6 fL (7.4-11.0); MONOCYTES # (AUTO) 0.7 x10^3/uL (0.3-0.8); MONOCYTES % (AUTO) 5.4 % (0.0-13.0); NEUTROPHILS # (AUTO) 11.8 x10^3/uL (2.2-4.8); NEUTROPHILS % (AUTO) 86.8 % (42.0-75.0); RED BLOOD COUNT 2.86 X10^6/uL (4.7-6.0); RED CELL DISTRIBUTION WIDTH 20.5 % (11.6-16.5); WHITE BLOOD COUNT 13.6 X10^3/uL (3.6-10.0)
[2022-01-31 05:06] LABS: ALANINE AMINOTRANSFERASE 29 Units/L (12-78); ALBUMIN 2.2 g/dL (3.4-5.0); ALKALINE PHOSPHATASE 377 Units/L (46-116); ASPARTATE AMINO TRANSFERASE 62 Units/L (15-37); BLOOD UREA NITROGEN 108 mg/dL (7-18); CARBON DIOXIDE 22.4 mmol/L (21-32); CHLORIDE 90 mmol/L (98-107); COR CA(FOR HYPOALB) 11.4 mg/dL (8.5-10.1); CREATININE 6.72 mg/dL (0.70-1.30); SODIUM 128 mmol/L (136-145); TOTAL PROTEIN 5.8 g/dL (6.4-8.2); eGFR NON BLACK RACES 9 (>60)
[2022-01-31 05:39] LABS: ANISOCYTOSIS 1+; PLATELET MORPHOLOGY COMMENT NORMAL (NORMAL)
[2022-01-31] MEDS: NS 1,000 ML IV 1,000 ML IV SCH ×3 (08:47→21:46)
[2022-01-31] MEDS: ZOSYN VIAL 3.375 GRAMS 3.375 G in NS 100 ML IV 100 ML IV SCH ×2 (09:30→22:13)
[2022-01-31] MEDS ORDERED: NS 1,000 ML IV 1,000 ML IV ONE (09:52)
[2022-01-31] MEDS ORDERED: ULTRAM PO PRN (10:04)
[2022-01-31] MEDS ORDERED: ROXICODONE TAB 5 MG PO PRN (10:31)
[2022-01-31] MEDS ORDERED: PROCRIT or EPOGEN VIAL 10,000 UNITS SC SCH (10:33)
[2022-01-31] MEDS: ZOFRAN TAB 4 MG PO SCH ×2 (11:10→18:02)
[2022-01-31] MEDS: FLOMAX PO SCH ×2 (11:10→21:48)
[2022-01-31] MEDS: COLACE CAP 100 MG PO SCH ×2 (11:11→21:48)
[2022-01-31] MEDS: CARAFATE PO SCH ×3 (11:11→21:47)
[2022-01-31] MEDS: MEGACE PO SCH ×2 (11:11→21:48)
[2022-01-31] MEDS: MIRALAX POWDER (1 DOSE 17 G) PO SCH (11:12)
--- NOTE | 2022-01-31 13:10 | DR.H&P ---
H&P - History & Physical for Day of: H&P Date: 01/30/22 - Chief Complaint Chief Complaint: WEAKNESS, ABDOMINAL SWELLING, VOMITING, DECREASED APPETITE. - History of Present Illness History of Present Illness: PRESENTED TO THE HOSPITAL A DIRECT ADMISSION DUE TO COMPLAINTS OF SEVERE WEAKNESS, ABDOMINAL SWELLING, VOMITING, DECREASED APPETITE. SYMPTOMS STARTED SEVERAL DAYS AGO. HIS SPOUSE REPORTS THAT HE HAS BEEN TAKING LASIX 40MG BY MOUTH TWICE A DAY TO TRY TO DECREASE THE ABDOMINAL SWELLING. HE HAS BEEN TAKING BACTRIM DS 1 TABLET BID FOR TREATMENT OF A UTI. HE HAS BEEN UNABLE TO AMBULATE WELL DUE TO SEVERE WEAKNESS. HE ALSO C OMPLAINS OF CHRONIC RIGHT SHOULDER PAIN AND DIFFUSE ABDOMINAL PAIN. HIS PMH INCLUDES: PROSTATE CANCER, ARTHRITIS, CHRONIC BACK PAIN, TRANSURETHRAL RESECTION, PARTIAL THYROIDECTOMY, CANCER OF LEFT LEG REMOVED, VASECTOMY. ON ARRIVAL TO THE HOSPITAL, VITALS WERE 97.9-132-18-97%-92/59. LABS WERE OBTAINED. WBC 14.8, RBC 3.51, HGB 10.2, HCT 30.8, SODIUM 126, POTASSIUM 4.4, CHLORIDE 88, BUN 108, CREATININE 6.80, GFR 9, CALCIUM 10.7, TOTAL BILI 1.30, AST 72, ALT 34, ALK PHOS 490, AMMONIA <10, TOTAL PROTIEN 6.5, ALBUMIN 2.2, AMYLASE 46, LIPASE 135. A URINALYSIS WAS OBTAINED AND REVEALED: WBC TNTC, RBC 5-10, LEUKOCYTES 3+, BACTERIA 2+, BLOOD 2+, PROTEIN 3+. COVID-19 NEGATIVE. A URINE CULTURE WAS SET UP. A CHEST XRAY WAS OBTAINED AND REVEALED: 1. No acute cardiopulmonary process. WE ADMINISTERED A NORMAL SALINE 1 LITER BOLUS X 1. HE WAS STARTED ON NORMAL SALINE AT 125 ML/HR, ZOSYN 3.375G IV Q12H, ALBUMIN 25% IV DAILY, AND HIS HOME MEDICATIONS WERE RESUMED. WE WILL OBTAIN AN ABDOMEN/PELVIS CT WITHOUT CONTRAST. OTHERWISE, WE PLAN TO FOLLOW-UP WITH AM LABS AND CONTINUE TO MONITOR. TIME SPENT ON CLINICAL ASSESSMENT, REVIEWING LABS AND IMAGING, DECISION MAKING, AND DOCUMENTATION GREATER THAN 75 MINUTES. - Past Medical History Past Medical History: Arthritis, GERD Additional Medical History: PROSTATE CANCER, CHRONIC BACK PAIN - Past Surgical History Surgical History: Other Additional Surgical History: TRANSURETHRAL RESECTION, PARTIAL THYROIDECTOMY, SKIN CANCER REMOVAL, VASECTOMY - Family History Family Medical History: Cancer, [place] - Social History Does patient currently use any type of tobacco product: No Have you used tobacco products in the last 12 months: No Type of Tobacco Use: None Alcohol Use: None Drug Use: None - Medications Home Medications: Sulfa (Sulfonamide Antibiotics) [SULFA] Allergy (Verified 12/18/21 12:46) CONTINUE taking the following medications epoetin zonia [Procrit] 4,000 unit SUBCUT .SHERICE,TUES,Thu01/31/22 [History] ondansetron 8 mg PO Q8H 01/31/22 [History] sucralfate 1 g PO QACHS 01/31/22 [History] tamsulosin 0.4 mg PO BID 01/31/22 [History] - Review of Systems Constitutional: Weakness Eyes: No Symptoms Reported ENT: No Symptoms Reported Respiratory: No Symptoms Reported Cardiovascular: Light Headedness Gastrointestinal: See HPI, Nausea, Vomiting, Abdominal Pain, Other (ABDOMINAL SWELLING ) Genitourinary: No Symptoms Reported Musculoskeletal: No Symptoms Reported, Shoulder Pain Skin: No Symptoms Reported Neurological: Weakness - Physical Exam Vital Signs: Temperature 97.7 F Pulse Rate [Left Radial] 117 Respiratory Rate 20 Blood Pressure [Right Arm] 136/86 O2 Sat by Pulse Oximetry 97 Oriented: Normal Eyes: Normal Ear: Normal Nose: Normal Throat: Normal Respiratory: Diminished Throughout Cardiovascular: Tachycardia : Normal Auscultation: Bowel Sounds: Decreased Palpation: Normal Tenderness: Diffuse, Mild Skin: Decreased Turgur Musculoskeletal: Right, Shoulder, Tender Psychiatric: Normal Mood Description: Calm Affect: Normal Speech Pattern: Clear - Assessment/Plan (1) Acute renal failure (ARF) Qualifiers: Acute renal failure type: unspecified Qualified Code(s): N17.9 - Acute kidney failure, unspecified Status: Acute Plan: ADMIT, NS BOLUS, NORMAL SALINE AT 125 ML/HR, ZOSYN 3.375G IV Q12H, ALBUMIN 25% IV DAILY, AND HIS HOME MEDICATIONS WERE RESUMED. (2) Urinary tract infection Qualifiers: Urinary tract infection type: acute cystitis Hematuria presence: with hematuria Qualified Code(s): N30.01 - Acute cystitis with hematuria Status: Acute (3) Abdominal pain Qualifiers: Abdominal location: generalized Qualified Code(s): R10.84 - Generalized abdominal pain Status: Acute (4) Hyponatremia Status: Acute (5) Nausea and vomiting Qualifiers: Vomiting type: unspecified Qualified Code(s): R11.2 - Nausea with vomiting, unspecified Status: Acute (6) Prostate cancer Status: Acute (7) GERD (gastroesophageal reflux disease) Qualifiers: Esophagitis presence: esophagitis presence not specified Qualified Code(s): K21.9 - Gastro-esophageal reflux disease without esophagitis Status: Chronic - Allergies Allergies/Adverse Reactions: Allergies Allergy/AdvReac Type Severity Reaction Status Date / Time Sulfa (Sulfonamide Allergy Verified 12/18/21 12:46 Antibiotics) [SULFA]
[2022-01-31] MEDS: LEVSIN/MAALOX/LIDOC VISC PO SCH ×3 (13:11→21:47)
--- NOTE | 2022-01-31 13:57 | CT ---
HISTORYSWOLLEN/DISTENDED ABDOMENSTUDYABDOMEN/PELVIS W/O CONCOMPARISONCT abdomen and pelvis 12/20/2021TECHNIQUEMultiple CT axial images of the abdomen and pelvis were obtained without IV contrast. Coronal and sagittal images were reconstructed. Dose reduction techniques included Automated Exposure Control (AEC) and adjustment of mA and kV.FINDINGSThe appearance of the lung bases is stable with probable pulmonary nodules. Linear areas may represent scarring or atelectasis. The only new finding is a small left effusion which was not present previously.Multiple liver nodules in a large liver consistent with metastatic disease. This was present on the prior study.Perihepatic fluid is new, as is small volume ascites in the pelvis and in the upper left abdomen. This is part of a generalized edema process seen as increased density in the intra-abdominal fat and the subcutaneous fat. Spleen and pancreas are unremarkable. I do not identify the adrenal glands and due to the lack of contrast. Large retroperitoneal lymphadenopathy is present in the para-aortic distribution. I believe this is larger than on the prior study.Bilateral hydronephrosis is present. Unchanged on the right but new on the left. The left hydronephrosis is mild. The urinary bladder has diffusely thickened wall, not changed from prior study. Right pelvic and lateral wall lymphadenopathy is larger. Left pelvic wall lymphadenopathy is not as prominent but also larger than on the prior study.Fiduciary markers are seen in the prostate. There is no bowel obstruction or pneumoperitoneum.Degenerative changes are present in the spine.IMPRESSION1. New generalized edema with left effusion and ascites2. New mild left hydroureteronephrosis3. Larger retroperitoneal and pelvic lymphadenopathy4. Stable hepatic metastasis5. Stable right hydroureteronephrosis6. Stable urinary bladder wall thickeningElectronically signed by: Carlos Mendez (Jan 31, 2022 13:55:08)
[2022-01-31] MEDS: ALBUMIN HUMAN 25%- 100 ML 100 ML IV SCH (22:32)
[2022-02-01] MEDS: ZOFRAN TAB 4 MG PO SCH ×2 (02:42→10:55)
[2022-02-01 06:20] LABS: ALBUMIN 2.3 g/dL (3.4-5.0); CALCIUM 9.5 mg/dL (8.5-10.1); CARBON DIOXIDE 22.2 mmol/L (21-32); COR CA(FOR HYPOALB) 10.9 mg/dL (8.5-10.1); CREATININE 6.48 mg/dL (0.70-1.30); TOTAL PROTEIN 5.7 g/dL (6.4-8.2)
[2022-02-01] MEDS: CARAFATE PO SCH ×2 (06:34→10:54)
[2022-02-01 06:37] LABS: BASOPHILS % (AUTO) 0.1 % (0.2-1.0); EOSINOPHILS # (AUTO) 0.1 x10^3/uL (0.0-0.2); EOSINOPHILS % (AUTO) 0.8 % (0.9-2.9); HEMATOCRIT 24.8 % (42.0-54.0); HEMOGLOBIN 8.2 g/dL (13.5-18.0); LYMPHOCYTES # (AUTO) 0.9 X10^3/uL (1.3-2.9); LYMPHOCYTES % (AUTO) 6.5 % (21.0-51.0); MEAN CORPUSCULAR HEMOGLOBIN 29.3 pg (27.0-34.0); MEAN CORPUSCULAR HGB CONC 33.3 g/dL (33.0-35.0); MEAN PLATELET VOLUME 7.6 fL (7.4-11.0); MONOCYTES # (AUTO) 0.8 x10^3/uL (0.3-0.8); MONOCYTES % (AUTO) 5.4 % (0.0-13.0); NEUTROPHILS # (AUTO) 12.4 x10^3/uL (2.2-4.8); NEUTROPHILS % (AUTO) 87.2 % (42.0-75.0); RED BLOOD COUNT 2.81 X10^6/uL (4.7-6.0); RED CELL DISTRIBUTION WIDTH 20.8 % (11.6-16.5); WHITE BLOOD COUNT 14.2 X10^3/uL (3.6-10.0)
[2022-02-01] MEDS: NS 1,000 ML IV 1,000 ML IV SCH (06:37)
[2022-02-01 07:25] LABS: PLATELET MORPHOLOGY COMMENT NORMAL (NORMAL)
[2022-02-01 07:26] LABS: ANISOCYTOSIS 1+; SPHEROCYTES 1+
[2022-02-01] MEDS: LEVSIN/MAALOX/LIDOC VISC PO SCH ×2 (08:37→14:31)
[2022-02-01] MEDS: MIRALAX POWDER (1 DOSE 17 G) PO SCH (08:37)
[2022-02-01] MEDS: COLACE CAP 100 MG PO SCH (08:40)
[2022-02-01] MEDS: MEGACE PO SCH (08:40)
[2022-02-01] MEDS: FLOMAX PO SCH (08:42)
[2022-02-01] MEDS: ZOSYN VIAL 3.375 GRAMS 3.375 G in NS 100 ML IV 100 ML IV SCH (10:07)
[2022-02-01 16:07] VITALS: BP 95/58
== END 2022-02-01 16:15 | disposition short-term general hospital (02) | DRG 683 ==
LOC: MED/SURG → OBSVTOIN 17:45
PROVIDERS: ADMIT Internal Medicine; ATTEND Internal Medicine
DX: B96.29 Other Escherichia coli [E. coli] as the cause of diseases classified elsewhere; K21.9 Gastro-esophageal reflux disease without esophagitis; C78.7 Secondary malignant neoplasm of liver and intrahepatic bile duct; R26.81 Unsteadiness on feet; R11.2 Nausea with vomiting, unspecified; R18.8 Other ascites; N17.8 Other acute kidney failure; N30.01 Acute cystitis with hematuria; R06.02 Shortness of breath; C61 Malignant neoplasm of prostate; Z20.822 Contact with and (suspected) exposure to COVID-19; R10.84 Generalized abdominal pain; R53.1 Weakness; E87.1 Hypo-osmolality and hyponatremia; M21.372 Foot drop, left foot